=== PATIENT | male | born 1965 | race Caucasian/White ===

== ENCOUNTER 2016-11-02 11:46 | Day surgery (SDC) | payer MEDICARE, OTHER ==
[~2016-11-02 11:46] MED LIST: LEXAPRO10 M1 PO; TYLENOL325 M2 PO
[2016-11-02 13:02] LABS: BASO % 1.1 % (0-2); BASO ABSOLUTE COUNT 0.1 tho/cmm (0.0-0.2); EOS % 2.7 % (0-7); EOSINOPHIL ABSOLUTE COUNT 0.1 tho/cmm (0.0-0.7); HCT-HEMATOCRIT 40.6 % (36.0-53.5); HGB-HEMOGLOBIN 13.7 gm/dl (13.5-17.0); IMMATURE GRANULOCYTES ABSOLUTE 0.01 tho/cmm (0-0.03); IMMATURE GRANULOCYTES PERCENT 0.2 % (0-0.3); LYMPH % 18.4 % (20-45); LYMPH ABSOLUTE COUNT 0.9 tho/cmm (0.8-4.5); MCHC MEAN CORPUSCULAR HGB CONC 33.7 % (32.0-36.0); MCV (MEAN CELL VOLUME) 91.9 fl (82.0-96.0); MEAN PLATELET VOLUME 11.6 cmc (9.4-12.4); MONO % 11.4 % (0-12); MONOCYTE ABSOLUTE COUNT 0.5 tho/cmm (0.0-1.2); NEUTROPHIL ABSOLUTE COUNT 3.1 tho/cmm (1.6-8.0); NEUTROPHIL-AUTOMATED 3.1 tho/cmm (1.6-8.0); NEUTROPHILS % 66.2 % (40-80); PLATELET COUNT 167 tho/cmm (150-450); RED BLOOD COUNT 4.42 mil/cmm (4.40-5.70); RED CELL DISTRIBUTION WIDTH 12.5 % (12.4-16.4); WHITE BLOOD COUNT 4.7 tho/cmm (4.0-10.0)
[2016-11-02 13:06] LABS: PROTHROMBIN TIME 11.5 SECONDS (9.0-13.6)
== END 2016-11-02 16:12 ==
LOC: CTSCAN 11:46 → SHSB 11:47
PROVIDERS: Radiology Diagnostic Radiology
PROC: 0QB33ZX Excision of Left Pelvic Bone, Percutaneous Approach, Diagnostic (ICD-10-PCS; principal; 2016-11-02)
DX: C79.51 Secondary malignant neoplasm of bone (principal); C76.0 Malignant neoplasm of head, face and neck; Z79.899 Other long term (current) drug therapy
CPT/HCPCS: C1830; J2250; J3010; J7030